=== PATIENT | female | born 1980 | race Caucasian/White ===

== ENCOUNTER 2021-02-17 08:58 | Emergency (ER) | payer BC ==
[2021-02-17 10:02] LABS: Absolute Lymphocytes (CBC) 1.8 K/uL (0.7-4.9); Basophils % 0.4 % (0-1.3); Hematocrit 41.1 % (36.0-45.0); Lymphocytes % 24.9 % (15.3-44.8); MPV 9.3 fL (7.6-11.3); RBC Red Blood Cell Count 4.59 M/uL (3.86-4.86)
--- NOTE | 2021-02-17 10:10 | RAD REPORT ---
EXAM DESCRIPTION: US - Renal Ultrasound-Complete - 02/17/2021 10:05 am CLINICAL HISTORY: [place] Flank pain COMPARISON: No comparisons FINDINGS: Both kidneys are normal in size, shape and echotexture. The right kidney measures 11.3 x 4.1 x 3.2 cm. No hydronephrosis, focal mass or perinephric fluid. The left kidney measures 11.7 x 4.9 x 4.6 cm. No hydronephrosis, focal mass or perinephric fluid. The urinary bladder is incompletely distended without gross abnormality seen. IMPRESSION: Unremarkable renal sonogram.
[2021-02-17 10:25] LABS: Urine Blood NEGATIVE (NEG); Urine Glucose NEGATIVE (NEG); Urine Protein NEGATIVE (NEG); Urine Specific Gravity 1.025 (1.005-1.030); Urine pH 6.5 (5.0-7.0)
[2021-02-17 10:26] LABS: Urine Bacteria <20 /HPF (<20); Urine RBC NONE SEEN /HPF (NONE SEEN)
[2021-02-17 10:26] LABS: Albumin 4.3 g/dL (3.4-5.0); Bilirubin Direct 0.2 mg/dL (0-0.2); Bilirubin Total 0.7 mg/dL (0.2-1.0); Potassium 3.7 mmol/L (3.5-5.1); Protein, Total 7.7 g/dL (6.4-8.2)
[2021-02-17 10:27] LABS: Urine Yeast PRESENT (NONE SEEN)
[2021-02-17] MEDS ORDERED: FLUCONAZOLE 100 MG TAB ONE (10:49)
[2021-02-17] MEDS ORDERED: NA CHLORIDE 0.9% 1,000 ML ONE (10:49)
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
== END 2021-02-17 11:52 | disposition home or self-care (01) ==
LOC: ER 08:58
DX: R30.0 Dysuria (principal)
CPT/HCPCS: 87088; 85025; 87086; 80048; 36415; 81025; 80076; 76770; 96360; 99284; J7030; 81003; 81015